=== PATIENT | female | born 1960 | race Caucasian/White ===

== ENCOUNTER 2018-02-06 06:17 | Day surgery (SDC) | payer OTHER ==
[2018-02-06] MEDS ORDERED: SEVOFLURANE 15 MIN (07:00)
[2018-02-06] MEDS ORDERED: DEXAMETHASONE 4 MG/ML 1 ML INJ (07:00)
[2018-02-06] MEDS ORDERED: LIDOCAINE 2% (SDV) 5 ML INJ (07:00)
[2018-02-06] MEDS ORDERED: ONDANSETRON 4 MG INJ (07:00)
[2018-02-06] MEDS ORDERED: CEFAZOLIN 1 GM INJ (07:00)
[2018-02-06 07:42] LABS: ADD MAN DIFF? NO
[2018-02-06 07:47] LABS: WHITE BLOOD COUNT 6.1 10^3/ul (4.8-10.8)
[2018-02-06 07:47] LABS: BASOPHILS % 0.7 % (0.0-2.0); EOSINOPHILS # 0.1 10^3/ul (0.0-0.5); HEMATOCRIT 42.6 % (37.0-47.0); HEMOGLOBIN 13.7 g/dl (12.0-16.0); LYMPHOCYTES # 2.3 10^3/ul (0.8-2.9); LYMPHOCYTES % 37.7 % (15.0-51.0); MEAN CORPUSCULAR HEMOGLOBIN 27.8 pg (29.0-33.0); MEAN CORPUSCULAR HGB CONC 32.2 g/dl (32.0-37.0); MEAN CORPUSCULAR VOLUME 86.6 fl (82.0-101.0); MEAN PLATELET VOLUME 9.6 fl (7.4-10.4); MONOCYTE # 0.6 10^3/ul (0.3-0.9); MONOCYTES % 10.1 % (0.0-11.0); NEUTROPHIL # 3.1 10^3/ul (1.6-7.5); NEUTROPHILS % 50.3 % (39.0-77.0); PLATELET COUNT 310 10^3/UL (140-415); RED BLOOD COUNT 4.92 10^6/ul (4.20-5.40); RED CELL DISTRIBUTION WIDTH 12.8 % (11.5-14.5)
[2018-02-06 08:20] LABS: ALANINE AMINOTRANSFERASE 21 IU/L (13-69); ALBUMIN 4.2 g/dl (3.3-4.9); ALBUMIN/GLOBULIN RATIO 1.07; ALKALINE PHOSPHATASE 99 IU/L (42-121); ANION GAP 10 (5-13); ASPARTATE AMINO TRANSFERASE 34 IU/L (15-46); BILIRUBIN,INDIRECT 0.2 mg/dl (0-1.1); BILIRUBIN,TOTAL 0.2 mg/dl (0.2-1.3); BLOOD UREA NITROGEN 14 mg/dl (7-20); CALCIUM 9.5 mg/dl (8.4-10.2); CARBON DIOXIDE 30 mmol/L (21-31); CHLORIDE 105 mmol/L (97-110); CREATININE 0.61 mg/dl (0.44-1.00); Estimated GFR > 60 mL/min (>60); GLUCOSE 99 mg/dl (70-220); POTASSIUM 3.9 mmol/L (3.5-5.1); TOTAL PROTEIN 8.1 g/dl (6.1-8.1)
[2018-02-06 08:23] LABS: SODIUM 145 mmol/L (135-144)
[2018-02-06 08:26] LABS: INR 0.92; PARTIAL THROMBOPLASTIN TIME 32.6 Sec (23.0-35.0); PROTIME 12.4 Sec (11.9-14.9)
[2018-02-06] MEDS ORDERED: FENTAnyl 50 MCG/ML VIAL (09:21)
[2018-02-06] MEDS ORDERED: MIDAZOLAM 1 MG/ML 2 ML INJ (09:22)
[2018-02-06] MEDS ORDERED: METOCLOPRAMIDE 10 MG INJ (09:25)
[2018-02-06] MEDS ORDERED: DIPHENHYDRAMINE 50 MG INJ IV (11:00)
[2018-02-06] MEDS ORDERED: hydrALAzine 20 MG INJ IV (11:00)
[2018-02-06] MEDS ORDERED: LEVALBUTEROL (NEB) 1.25 MG/0.5 ML AMP HHN (11:00)
[2018-02-06] MEDS ORDERED: IPRATROPIUM (NEB) 0.5 MG/2.5 ML AMP HHN (11:00)
[2018-02-06] MEDS ORDERED: LABETALOL HCL 20MG INJ IV (11:00)
[2018-02-06] MEDS ORDERED: HYDROmorphONE 1 MG/5 ML IV SYRINGE IV (11:00)
[2018-02-06] MEDS ORDERED: FENTAnyl 50 MCG/ML VIAL IV (11:00)
[2018-02-06] MEDS ORDERED: PROPOFOL 20 ML (11:05)
[2018-02-06] MEDS: HYDROmorphONE 1 MG/5 ML IV SYRINGE IV ×2 (12:50→12:56)
[2018-02-06] MEDS: ONDANSETRON 4 MG INJ IV (12:51)
[2018-02-06] MEDS ORDERED: morphine 2 MG INJ IV (13:00)
[2018-02-06] MEDS ORDERED: ONDANSETRON 4 MG INJ IV (13:00)
[2018-02-06] MEDS: MEPERIDINE 25 MG INJ IV (13:07)
[2018-02-06] MEDS: FENTAnyl 50 MCG/ML VIAL IV (13:42)
[2018-02-06] MEDS: D5W-0.45 NACL + KCL 20 MEQ 1,000 ML IV ×3 (15:05→22:42)
[2018-02-06] MEDS: ACETAMINOPHEN 1000MG/100ML IV 100 ML IVPB ×2 (16:46→22:41)
[2018-02-07] MEDS: morphine LIQ (10 MG/5 ML) CUP PO (01:35)
[2018-02-07] MEDS: D5W-0.45 NACL + KCL 20 MEQ 1,000 ML IV (04:41)
== END 2018-02-07 15:45 | disposition home or self-care (01) ==
LOC: SDS 06:17 → REC 14:48 → SDS 06:17 → MS1 13:55 → REC 12:42 → MS1 14:48 → SDS 02-07 15:45
DX: C50.911 Malignant neoplasm of unspecified site of right female breast (principal); E66.9 Obesity, unspecified; Z90.710 Acquired absence of both cervix and uterus; R94.31 Abnormal electrocardiogram [ECG] [EKG]
CPT/HCPCS: 19307; 71045; 80053; 85025; 85610; 85730; 88307; 93005